=== PATIENT | female | born 1985 | race African-American/Black ===

== ENCOUNTER 2022-12-27 19:07 | Emergency (ER) | payer SELFPAY ==
[~2022-12-27] VITALS: Ht 170.2 cm; Wt 68.0 kg
[2022-12-27] MEDS ORDERED: ONDANSETRON ODT 4 MG TAB.RAPDIS ONE (19:22)
[2022-12-27] MEDS ORDERED: HYDROCODONE/APAP 5-325MG TABLET ONE (19:22)
[2022-12-27] MEDS ORDERED: HYDROCODONE/APAP 5-325MG TABLET PO ONE (19:30)
[2022-12-27] MEDS ORDERED: ONDANSETRON ODT 4 MG TAB.RAPDIS SL ONE (19:30)
--- NOTE | 2022-12-27 19:48 | NUR ---
Xray at bedside
[2022-12-27] MEDS ORDERED: HYDR-4209 PO (20:12)
[2022-12-27] MEDS ORDERED: ONDA4TAB5 PO (20:12)
[2022-12-27] MEDS ORDERED: CYCL10TA9 PO (20:12)
--- NOTE | 2022-12-27 20:15 | NUR ---
Patient AOX4, speech is intact, ambulating independently in the room and to the bathroom. Patient in stable condition, no signs of distress noted. Patient's friend at bedside.
--- NOTE | 2022-12-27 20:28 | NUR ---
Placed left long shoulder splint
--- NOTE | 2022-12-27 20:46 | NUR ---
Patient discharged to home in stable condition. Written and verbal after care instructions given. Patient verbalizes understanding of instructions. Stressed follow up or return to ER for worsening s/s.
[2022-12-27 21:08] VITALS: BP 110/60
== END 2022-12-27 21:08 | disposition home or self-care (01) ==
LOC: ER 19:07
DX: S50.12XA Contusion of left forearm, initial encounter (principal); S20.212A Contusion of left front wall of thorax, initial encounter; V49.49XA Driver injured in collision with other motor vehicles in traffic accident, initial encounter; Y92.410 Unspecified street and highway as the place of occurrence of the external cause; Z91.013 Allergy to seafood
CPT/HCPCS: 71045; 73090; A4663; Q0162